=== PATIENT | female | born 1990 | race Caucasian/White ===

== ENCOUNTER 2018-07-02 17:12 | Emergency (ER) | payer OTHER ==
[2018-07-02 17:37] VITALS: TEMP 98.6
[2018-07-02] MEDS ORDERED: Lidocaine 5% Patch TD STA (18:01)
[2018-07-02] MEDS ORDERED: Lidocaine 5% Patch TD ONE (18:26)
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
--- NOTE | 2018-07-02 18:41 | C.PDOC ---
Chief Complaint (Nursing): Back Pain Past Medical History Vital Signs: Last Vital Signs Temp 98.6 F 07/02/18 17:21 Pulse 105 H 07/02/18 17:21 Resp 20 07/02/18 17:21 BP 103/66 07/02/18 17:21 Pulse Ox 100 07/02/18 17:21 Primary Care Provider: Non [facility] Provider, Surgical History: Appendectomy, Cholecystectomy - Social History Hx Alcohol Use: No Hx Substance Use: No - Immunization History Hx Tetanus Toxoid Vaccination: No Hx Influenza Vaccination: Yes Hx Pneumococcal Vaccination: No ED Course And Treatment O2 Sat by Pulse Oximetry: 100 Disposition Counseled Patient/Family Regarding: Diagnosis, Need For Followup, Rx Given - Disposition Referrals: [facility] [Outside] Disposition: HOME/ ROUTINE Disposition Time: 18:41 Condition: STABLE Additional Instructions: Continue meds as prescribed Rest and Ice area Follow up with PMD for MRI Return to the ED if symptoms worsen Prescriptions: Cyclobenzaprine [Flexeril] 10 mg PO TID PRN #15 tab PRN Reason: Muscle Spasm Lidocaine 5% [Lidoderm] 1 ea TD DAILY PRN #30 patch PRN Reason: Pain, Moderate (4-7) Naproxen [Naprosyn] 500 mg PO BID #30 tablet Instructions: Hemorrhoids (DC), Upper Back Pain (DC) Forms: [facility] (Malay), Work Excuse - Clinical Impression Clinical Impression: Thoracic back pain, Internal hemorrhoid
[2018-07-02 19:03] VITALS: BP 116/77; PULSE 96; RESP 18
[2018-07-02 19:08] VITALS: O2SAT 100
== END 2018-07-02 19:02 | disposition home or self-care (01) ==
LOC: C.ER 17:12
DX: M54.6 Pain in thoracic spine (principal); K64.8 Other hemorrhoids
CPT/HCPCS: 81025; 96372; 99283; J1885